=== PATIENT | female | born 1960 | race Caucasian/White ===

== ENCOUNTER 2025-04-23 13:08 | Emergency (ER) | payer MEDICARE, SELFPAY ==
[2025-04-23 13:18] VITALS: BP 179/109; PULSE 97; RESP 16; TEMP 36.6; O2SAT 98; BMI 24.7
--- NOTE | 2025-04-23 14:15 | EKG_ITS ---
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
[2025-04-23 14:25] LABS: Appearance Urine UA CLEAR; Bilirubin Urine UA 1+ (NEGATIVE); Color Urine UA YELLOW; Glucose Urine UA NEGATIVE (Negative); Ketones Urine UA TRACE (NEGATIVE); Leukocyte Esterase Urine UA NEGATIVE (NEGATIVE); Nitrite Urine UA NEGATIVE (Negative); Occult Blood Urine UA 1+ (Negative); Protein Urine UA 3+ (Negative); Specific Gravity Urine UA 1.025 (1.000-1.035); Urobilinogen Urine UA 1.0 E.U./dL (0.2)
[2025-04-23 14:26] LABS: pH Urine UA 6.5 (4.5-8.0)
[2025-04-23] MEDS: VENLAFAXINE ER 75 MG CAP 150 MG PO (14:27)
[2025-04-23 14:33] LABS: Add Manual Diff / Slide Review NO; Hematocrit 47.2 % (36-46); Hemoglobin 16.2 g/dL (12.0-16.0); Lymphocytes Absolute Auto 2500 /uL (1100-4500); Mean Corpuscular HGB Conc 34.2 % (30-36); Mean Corpuscular Hemoglobin 31.1 PG (26-34); Mean Corpuscular Volume 90.8 fL (80-100); Platelet Count 237 X10^3/uL (150-400)
[2025-04-23 14:39] LABS: Alanine Aminotransferase 22 IU/L (<35); Albumin 4.9 g/dL (3.5-5.0); Albumin Globulin Ratio 1.4 (1.0-2.8); Alkaline Phosphatase 91 U/L (38-126); Blood Urea Nitrogen 15 mg/dL (7-17); Calcium 9.7 mg/dL (8.4-10.2); Carbon Dioxide 28 mmol/L (22-32); Chloride 105 mmol/L (98-107); Estimated Glomerular Filt Rate > 60 mL/min (>60); Globulin 3.6 g/dL (1.7-4.1); Glucose 114 mg/dL (70-99); HEMOLYSIS < 15 (0-50); Potassium 3.5 mmol/L (3.4-5.1); Sodium 142 mmol/L (137-145); Total Protein 8.5 g/dL (6.3-8.2)
[2025-04-23 14:40] LABS: Ictotest Urine Negative (Negative)
[2025-04-23 14:41] LABS: Culture Indicated Urine Cult Not Indicated
--- NOTE | 2025-04-23 15:31 | ED.RECABL ---
HPI - Recheck/Abnormal Lab/Rx General Chief Complaint: Recheck/Abnormal Lab/Rx Stated Complaint: Prescription Refill Time Seen by Provider: 04/23/25 15:31 Source: patient Mode of arrival: Ambulatory History of Present Illness HPI narrative: 64 years old female came today complaining of nausea vomiting, dizziness since Thursday after he ran out of her venlafaxine. She reports a similar symptoms when she ran out of her venlafaxine. 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 She denied any headache, loss of consciousness, numbness weakness on her arms or legs, facial droop, slurred speech, change in vision, chest pain, shortness of breath, diarrhea, constipation, urine problem, abdominal pain, back pain. Related Data Allergies Allergy/AdvReac Type Severity Reaction Status Date / Time No Known Drug Allergies Allergy Verified 04/23/25 13:19 Review of Systems Review of Systems Narrative: Positive for nausea vomiting, dizziness. Negative for headache, loss of consciousness, numbness weakness on her arms or legs, facial droop, slurred speech, change in vision, chest pain, shortness of breath, diarrhea, constipation, urine problem, abdominal pain, back pain. Patient History Smoking Status: Current every day smoker tobacco type: cigarettes Exam Initial Vital Signs Initial Vital Signs: Vital Signs Temperature 97.9 F 04/23/25 13:18 Pulse Rate 97 H 04/23/25 13:18 Respiratory Rate 16 04/23/25 13:18 Blood Pressure 179/109 H 04/23/25 13:18 Pulse Oximetry 98 04/23/25 13:18 Oxygen Delivery Method Room Air 04/23/25 13:18 Const General: cooperative, comfortable and No acute distress Eyes EOM: EOM intact bilaterally Neck Neck: supple Resp Other: Clear to auscultation bilaterally. No rhonchi or rales or wheezing. No respiratory distress. Cardio Other: Normal S1-S2 without murmur. Normal rate and rhythm. GI Other: No tenderness on palpation, guarding or rebound tenderness. No distention. Skin General: no rashes or lesions noted Neuro Other: Alert oriented x4. Normal facial movement, eye movement, sensation and strength in both arms and legs. Normal gait. Course Orders Ordered: ED Orders 04/23/25 14:03 EKG-12 Lead Stat 04/23/25 14:09 Ictotest Urine Stat Urinalysis and Microscopic Stat 04/23/25 14:20 CBC Auto Diff [Complete Blood Count AUTO DIFF] Stat CMP [Comprehensive Metabolic Panel] Stat Venlafaxine HCl (Venlafaxine Er 75 Mg Cap) 150 mg PO DAILY ANDREA Last Admin: 04/23/25 14:27 Dose: 150 mg Documented By: SOBEIDA Vital Signs Vital signs: Vital Signs - 8 hr 04/23/25 13:18 Temperature 97.9 F Pulse Rate 97 H Respiratory Rate 16 Blood Pressure 179/109 H Pulse Oximetry 98 Oxygen Delivery Method Room Air MDM - Recheck/Abnormal Lab/Rx Lab Data 04/23/25 14:20 04/23/25 14:20 Labs: Lab Results 04/23/25 04/23/25 Range/Units 14:09 14:20 WBC 11.1 H (4.5-11.0) X10^3/uL RBC 5.20 (4.0-5.2) X10^6/uL Hgb 16.2 H (12.0-16.0) g/dL Hct 47.2 H (36-46) % MCV 90.8 (80-100) fL MCH 31.1 (26-34) PG MCHC 34.2 (30-36) % RDW 13.0 (11.6-14.8) % Plt Count 237 (150-400) X10^3/uL Neut % (Auto) 70.7 (50-75) % Lymph % (Auto) 22.4 L (25-40) % [place] % (Auto) 5.8 (3-14) % Eos % (Auto) 0.7 L (2-4) % Baso % (Auto) 0.4 (0-2) % Neut # (Auto) 7900 H (9514-2450) /uL Lymph # (Auto) 2500 (3306-7689) /uL [place] # (Auto) 600 (0-900) /uL Eos # (Auto) 100 (0-450) /uL Baso # (Auto) 0 (0-100) /uL Sodium 142 (137-145) mmol/L Potassium 3.5 (3.4-5.1) mmol/L Chloride 105 (98-107) mmol/L Carbon Dioxide 28 (22-32) mmol/L BUN 15 (7-17) mg/dL Creatinine 0.84 (0.52-1.04) mg/dL Estimated GFR > 60 (>60) mL/min BUN/Creatinine Ratio 17.9 (6-22) Glucose 114 H (70-99) mg/dL Calcium 9.7 (8.4-10.2) mg/dL Total Bilirubin 0.9 (0.2-1.3) mg/dL AST 30 (14-36) IU/L ALT 22 (<35) IU/L Alkaline Phosphatase 91 (38-126) U/L Total Protein 8.5 H (6.3-8.2) g/dL Albumin 4.9 (3.5-5.0) g/dL Globulin 3.6 (1.7-4.1) g/dL Albumin/Globulin Ratio 1.4 (1.0-2.8) Urine Color Yellow Urine Appearance Clear Urine pH 6.5 (4.5-8.0) Ur Specific [place] 1.025 (1.000-1.035) Urine Protein 3+ H (Negative) Urine Glucose (UA) Negative (Negative) g/dL Urine Ketones Trace H (NEGATIVE) Urine Occult Blood 1+ H (Negative) Urine Nitrate Negative (Negative) Urine Bilirubin 1+ H (NEGATIVE) Ur Bilirubin Confirm Negative (Negative) Urine Urobilinogen 1.0 (0.2) E.U./dL Ur Leukocyte Esterase Negative (NEGATIVE) Urine RBC 5-10/hpf H (0-5/HPF) Urine WBC 0-1/hpf (0-5/HPF) Ur Squamous Epith Cells 0-1 /hpf (0-5/HPF) Urine Bacteria Moderate (10-30) H (None) Hyaline Casts 0-1/lpf (None) Urine Mucus 3+ H (Negative) Ur Culture Indicated? Cult not indicated Vol Urine Centrifuged 10ml (spun) MDM Narrative Medical decision making narrative: 64 years old female came in today complaining of dizziness, nausea vomiting after she missed her venlafaxine since Thursday. Her neuro exam was intact without focal deficit. She was walking thigh in the ED after she got a dose of her venlafaxine. She denied any chest pain, shortness of breath, abdominal pain. A CBC showed WBC of 11.1, hemoglobin 16.2 otherwise normal CBC. Her CMP was normal with protein 8.5. It seemed like she had some degree of dehydration. Her UA showed small blood in the urine without infection. I asked her to repeat UA within 2 weeks with her PCP and drink plenty of fluid. Discharge Plan Departure Patient Disposition: Home Clinical Impression: Nausea & vomiting, Dizziness Instructions: Nausea and Vomiting-Adult Activity Restrictions/Additional Instructions: Please take your venlafaxine. Please come back to the emergency room if any worsening symptoms including but not limited to further nausea vomiting, headache, numbness weakness on your arms or legs, facial droop, slurred speech, chest pain, shortness of breath. Please follow-up with your primary care doctor for further check on the urine next 2 weeks since small blood in the urine today. Stand Alone Forms: Patient Portal/API
--- NOTE | 2025-04-23 15:50 | PC.NURSE ---
Full Trauma called 13:50
[2025-04-23 16:13] VITALS: BP 148/74; PULSE 74; RESP 20; O2SAT 97
== END 2025-04-23 16:15 | disposition home or self-care (01) ==
PROVIDERS: Emergency Provider Emergency Medicine
DX: R11.2 Nausea with vomiting, unspecified (principal); R19.7 Diarrhea, unspecified; R07.9 Chest pain, unspecified
CPT/HCPCS: 80053; 81001; 85025; 93005; 93010; 99283; 99284